=== PATIENT | male | born 1975 | race Native Hawaiian/Other Pacific Islander ===

== ENCOUNTER 2017-03-09 12:04 | Emergency (ER) | payer MEDICAID ==
[2017-03-09 12:06] VITALS: BMI 25.0
--- NOTE | 2017-03-09 12:50 | ED PDOC ---
Arrival/HPI - General Chief Complaint: Dental Pain Time Seen by Provider: 03/09/17 12:46 Historian: Patient - History of Present Illness Narrative History of Present Illness (Text): 03/09/17 12:47 This 42 yo female presents to this ED c/o right upper dental pain x 2 days. Patient stated his right face appears mild swelling since this morning. Patient made an appointment to see his dentist tomorrow. Patient denies other complains, fever, or dysphagia. Time/Duration: Other (2 daus) Quality: Aching Context: Home Past Medical History - Provider Review Nursing Documentation Reviewed: Yes - Infectious Disease Hx of Infectious Diseases: None - Tetanus Immunization Tetanus Immunization: Unknown - Pulmonary Hx Asthma: Yes (last episode 2013 never hospitalized) - Integumentary Hx Dermatological Disorder: No - Musculoskeletal/Rheumatological Hx Fractures: Yes (right arm) - Psychiatric Hx Substance Use: No - Surgical History Other/Comment: removal mass back. removal of skin tumor on rt thigh 4 weeks ago - Anesthesia Hx Anesthesia: Yes Hx Anesthesia Reactions: No Hx Malignant Hyperthermia: No - Suicidal Assessment Feels Threatened In Home Enviroment: No Family/Social History - Physician Review Nursing Documentation Reviewed: Yes Family/Social History: No Known Family HX Smoking Status: Light Smoker < 10 Cigarettes Daily Hx Alcohol Use: Yes Frequency of alcohol use: Socially Hx Substance Use: No Substance used: Marijuana Hx Substance Use Treatment: No Allergies/Home Meds Allergies/Adverse Reactions: Allergies No Known Allergies Allergy (Verified 03/09/17 12:33) Home Medications: Home Meds Medication Instructions Recorded Confirmed Naproxen [Naprosyn] 500 mg PO DAILY PRN 03/09/17 03/09/17 Review of Systems - Review of Systems Constitutional: Normal. absent: Fatigue, Weight Change, Fevers, Night Sweats Eyes: Normal ENT: Other (dental pain) Respiratory: Normal. absent: SOB, Cough Cardiovascular: Normal. absent: Chest Pain, Palpitations Gastrointestinal: Normal. absent: Abdominal Pain, Nausea, Vomiting Genitourinary Male: Normal. absent: Dysuria, Frequency, Hematuria Musculoskeletal: Normal. absent: Back Pain, Neck Pain Skin: Normal. absent: Rash Neurological: Normal Endocrine: Normal Hemo/Lymphatic: Normal Psychiatric: Normal Physical Exam Vital Signs Temp Pulse Resp BP Pulse Ox 03/09/17 12:27 98.1 F 96 H 19 137/85 96 Temperature: Afebrile Blood Pressure: Normal Pulse: Regular Respiratory Rate: Normal Appearance: Positive for: Well-Appearing, Non-Toxic, Comfortable Pain Distress: None Mental Status: Positive for: Alert and Oriented X 3 - Systems Exam Head: Present: Atraumatic, Normocephalic Pupils: Present: PERRL Extroacular Muscles: Present: EOMI Conjunctiva: Present: Normal Mouth: Present: Moist Mucous Membranes, Normal Lips, Normal Tounge, Normal Teeth , Other (mild gum tenderness over right posterior molar area, with minimum right facial swelling. No facial erythema, abscess, or cellulitis). No: Drooling, Trismus Nose (External): Present: Atraumatic Nose (Internal): Present: Normal Inspection Neck: Present: Normal Range of Motion Back: Present: Normal Inspection Upper Extremity: Present: Normal Inspection Lower Extremity: Present: Normal Inspection, Normal ROM Neurological: Present: GCS=15, CN II-XII Intact, Speech Normal, Motor Func Grossly Intact, Normal Sensory Function, Normal Cerebellar Funct Skin: Present: Warm, Dry, Normal Color. No: Rashes Psychiatric: Present: Alert, Oriented x 3 Medical Decision Making ED Course and Treatment: 03/09/17 12:51 Discussed results and plan with patient. Patient understands results and is agreeable with plan. All questions answered. Re-evaluation Time: 12:51 Reassessment Condition: Re-examined, Improved - Medication Orders Current Medication Orders: Amoxicillin (Amoxil 500 Mg Cap) 500 mg PO STAT STA PRN Reason: Protocol Stop: 03/09/17 12:47 Disposition/Present on Arrival - Present on Arrival Any Indicators Present on Arrival: No History of DVT/PE: No History of Uncontrolled Diabetes: No Urinary Catheter: No History of Decub. Ulcer: No History Surgical Site Infection Following: None - Disposition Have Diagnosis and Disposition been Completed?: Yes Diagnosis: Pain, dental Disposition: HOME/ ROUTINE Disposition Time: 12:51 Patient Plan: Discharge Condition: GOOD Discharge Instructions (ExitCare): Toothache (ED) Additional Instructions: Call private doctor for follow up visit in 1-2 days. take medication as instructed with food. Return to emergency if symptoms worsen. Make sure to see your Dentist tomorrow as scheduled by you. Prescriptions: Amoxicillin [Amoxil 500 mg Cap] 500 mg PO TID #30 cap Chlorhexidine 0.12% [Peridex] 15 ml PO BID #1 bottle Referrals: [facility] [Outside] - Follow up with primary [facility] [Outside] - Follow up with primary Forms: [employer] (T[place]anian)
[2017-03-09 13:32] VITALS: BP 121/71; PULSE 72; RESP 20; TEMP 98; O2SAT 100
== END 2017-03-09 13:32 | disposition home or self-care (01) ==
LOC: ED 12:04
DX: K08.89 Other specified disorders of teeth and supporting structures (principal); Z72.0 Tobacco use